=== PATIENT | male | born 1980 | race Caucasian/White ===

== ENCOUNTER 2019-01-04 14:12 | Day surgery (SDC) | payer OTHER ==
[2019-01-04] VITALS (14 sets, daily range): BP systolic 108–137; BP diastolic 72–87; PULSE 62–79; RESP 11–22; Ht 172.7 cm; Wt 58.3 kg
[~2019-01-04] VITALS: Ht 172.7 cm; Wt 58.3 kg
[2019-01-04] MEDS ORDERED: LACTATED RINGER'S 1,000 ML IV SCH (16:00)
[2019-01-04] MEDS ORDERED: CEFAZOLIN 2 GM/50 ML (PMX) 50 ML IVPB ONE (16:00)
--- NOTE | 2019-01-04 16:07 | PREAC ---
Date/Time of Note Date/Time of Note DATE: 01/04/19 TIME: 16:05 Anesthesia Eval and Record Evaluation Time Pre-Procedure Interview DATE: 01/04/19 TIME: 16:05 Age 38 Sex male NPO: 8 hrs Preoperative diagnosis Rt distal radius fracture Planned procedure Rt distal Radius ORIF Past Medical History Past Medical History: None Surgery & Anesthesia Issues No known issue Meds Anticoagulation: No Beta Renu within 24 hr: No Reason Beta Renu not given: Pt. not on B-Renu No Active Prescriptions or Reported Meds Current Medications Lactated Ringer's 1,000 ml @ 30 mls/hr Q24H IV Last administered on 01/04/19at 15:47; Admin Dose 30 MLS/HR; Start 01/04/19 at 16:00 Cefazolin Sodium/ Dextrose 50 ml @ 100 mls/hr ONCE ONCE IVPB ; Start 01/04/19 at 16:00; Stop 01/04/19 at 16:29 Meds reviewed: Yes Allergies Coded Allergies: codeine (Verified Allergy, Unknown, ITCHY RASH, 01/04/19) Allergies Reviewed: Yes Labs/Studies Labs Reviewed: Reviewed by anesthesiologist test: N/A Studies: ECG Pre-procedure Exam Last vitals Vital Signs Date Temp Pulse Resp B/P (MAP) Pulse Ox O2 O2 Flow FiO2 Time Delivery Rate 01/04/19 98.8 79 16 108/72 99 15:52 (84) Airway: Adequate mouth opening, Adequate thyromental dist Mallampati: Mallampati II Teeth: Normal Lung: Normal Heart: Normal ASA Physical Status ASA physical status: 1 Emergency: None Planned Anesthetic General/MAC: LMA Planned Pain Management Single shot nerve block, Parenteral pain med, Local by surgeon Pre-operative Attestations Prior to commencing anesthesia and surgery, the patient was re-evaluated, there was verification of: *The patient's identity *The results of appropriate recent lab work and preoperative vital signs *The above evaluation not changing prior to induction *Anesthetic plan, risk benefits, alternative and complications discussed with patient/family; questions answered; patient/family understands, accepts and wishes to proceed. JOSÉ LUIS QUESADA MD Jan 04, 2019 16:07
[2019-01-04] MEDS ORDERED: POLYMYXIN/BACITRACIN 1L IRRIG ONE (16:19)
--- NOTE | 2019-01-04 17:04 | HPN ---
Date/Time of Note Date/Time of Note DATE: 01/04/19 TIME: 17:04 Interval H&P Admission Note Pt. seen H&P reviewed: No system changes MAVIS VERGARA Jan 04, 2019 17:04
[2019-01-04] MEDS ORDERED: MIDAZOLAM 1 MG/ML 2 ML INJ ONE (17:08)
[2019-01-04] MEDS ORDERED: LIDOCAINE 2% (SDV) 5 ML INJ ONE (18:24)
[2019-01-04] MEDS ORDERED: ROPIVACAINE 0.5 % 30 ML VIAL ONE (18:24)
[2019-01-04] MEDS ORDERED: PROPOFOL 20 ML ONE (18:24)
[2019-01-04] MEDS ORDERED: CEFAZOLIN 1 GM INJ ONE (18:24)
[2019-01-04] MEDS ORDERED: ONDANSETRON 4 MG INJ ONE ×2 (18:25→19:08)
--- NOTE | 2019-01-04 18:56 | PAC ---
Date/Time of Note Date/Time of Note DATE: 01/04/19 TIME: 18:55 Post-Anesthesia Notes Post-Anesthesia Note Last documented vital signs Vital Signs Date Temp Pulse Resp B/P (MAP) Pulse Ox O2 O2 Flow FiO2 Time Delivery Rate 01/04/19 98.8 79 16 108/72 99 15:52 (84) Activity: WNL Respiratory function: WNL Cardiovascular function: WNL Mental status: Baseline Pain reasonably controlled: Yes Hydration appropriate: Yes Nausea/Vomiting absent: Yes Comments BP:112/56, P;78, Spo2:100%, T:98,8 JOSÉ LUIS QUESADA MD Jan 04, 2019 18:56
[2019-01-04] MEDS ORDERED: ONDANSETRON 4 MG INJ IV PRN (19:00)
[2019-01-04] MEDS ORDERED: MEPERIDINE 25 MG INJ IV PRN (19:00)
[2019-01-04] MEDS ORDERED: DIPHENHYDRAMINE 50 MG INJ IV PRN (19:00)
[2019-01-04] MEDS ORDERED: METOCLOPRAMIDE 10 MG INJ IV PRN (19:00)
[2019-01-04] MEDS ORDERED: HYDROmorphONE 1 MG/5 ML IV SYRINGE IV PRN ×2 (19:00)
[2019-01-04] MEDS ORDERED: FENTAnyl 50 MCG/ML VIAL IV PRN (19:00)
[2019-01-04] MEDS ORDERED: MEPERIDINE 25 MG INJ ONE (19:08)
--- NOTE | 2019-01-04 21:05 | OPPN ---
Date/Time of Note Date/Time of Note DATE: 01/04/19 TIME: 21:02 Operative Report Preoperative Diagnosis Right distal radius fracture, intra-articular, greater than 3 fragments Right carpal tunnel syndrome Postoperative Diagnosis Right distal radius fracture, intra-articular, greater than 3 fragments Right carpal tunnel syndrome Operation/Procedure Performed ORIF Right distal radius fracture, intra-articular, greater than 3 fragments Right carpal tunnel release Lengthening of the right wrist brachioradialis tendon Surgeon see signature line buyer assistant none Anesthesia: general Estimated blood loss: 0 - 10 ml's Transfusion Required none Specimen none Grafts/Implants none Complications none MAVIS VERGARA Jan 04, 2019 21:05
--- NOTE | 2019-01-05 03:35 | OPR ---
DATE OF OPERATION: 01/04/2019 SURGEON: Mavis Rosario MD ANESTHESIA: General. PREOPERATIVE DIAGNOSES: 1. Right distal radius fracture, intraarticular, greater than 3 fragments. 2. Right carpal tunnel syndrome. POSTOPERATIVE DIAGNOSES: 1. Right distal radius fracture, intraarticular, greater than 3 fragments. 2. Right carpal tunnel syndrome. PROCEDURES: 1. Open reduction and internal fixation of right distal radius fracture, intraarticular, greater than 3 fragments. 2. Right carpal tunnel release, open. 3. Lengthening of the right wrist brachioradialis tendon at the right wrist radial styloid. OPERATIVE FINDINGS: Comminuted right distal radius fracture with intraarticular extension and comminution with swelling at the carpal canal and displacement of the distal fragment radially due to the brachioradialis tendon. INDICATION FOR PROCEDURE: A 38-year-old male with injury to the right wrist, who was seen in the clinic and diagnosed with a displaced distal radius fracture. The options were discussed. The patient elected to proceed with surgical intervention, understanding the risks and benefits. DESCRIPTION OF PROCEDURE: The patient was seen in the preoperative area and all further questions were answered. Again, he gave informed consent understanding the risks and benefits. He was taken to the operative suite and placed in the supine position. He was placed under general anesthesia and tourniquet placed on the right upper extremity. Ancef 2 grams IV given and the right upper extremity was prepped with ChloraPrep stick and draped in the usual sterile fashion. Esmarch bandage was used to exsanguinate the extremity and tourniquet inflated to 250 mmHg. Attention was first turned to the distal radius and in a modified volar Huang approach, the distal radius was utilized with sharp dissection carried down through skin and subcutaneous tissue. The FCR sheath was incised and the FCR tendon retracted ulnarly. The FCR subsheath was incised and the FPL tendon retracted ulnarly. The pronator quadratus was elevated off its radial and distal borders and the fracture site was identified. The fracture was unable to be reduced due to the pull of the brachioradialis tendon. There was displacement of the distal fragment. A lengthening of the brachioradialis tendon was performed using Bovie electrocautery and a 15 blade knife to elevate the brachioradialis off of the radial styloid. The fracture was reduced into a more anatomic position and a [employer] volar distal radius plate was placed across the fracture site. Cortical screws were placed in the oblong hole and locking screws were placed distally. X-ray imaging showed appropriate hardware placement and bony alignment. Additional cortical and locking screws were placed proximally and distally. Final x-ray imaging showed appropriate hardware placement and bony alignment. The wound was copiously irrigated. Skin closed with 5-0 nylon. Attention was turned to the carpal tunnel and a 2 cm incision at the base of the palm was utilized with sharp dissection carried down through skin and subcutaneous tissue. The palmar aponeurosis was incised along its ulnar border and retractors were deepened. The transverse carpal ligament was divided along the ulnar border approximately 3 mm radial to the hook of the hamate. Retractors were placed proximally and distally, and the proximal and distal extensor transverse carpal ligaments were divided under direct visualization. Wound was copiously irrigated. Skin closed with 5-0 nylon. Xeroform was placed over the wounds, followed by sterile gauze, Webril, and a short arm splint. Tourniquet deflated after 57 minutes. The patient was awakened from anesthesia. He was taken the postoperative suite in stable condition. He tolerated the procedure well without complication. SPECIMENS: None. ESTIMATED BLOOD LOSS: 5 mL. COUNTS: Sponge, instrument, and needle counts correct. TOURNIQUET TIME: 57 minutes. CONDITION ON DISCHARGE: Stable. The patient was given a nonrefillable 5-day prescription for pain medication for the surgery today. Dictated By: MAVIS CENTENO/KAYCEE Conf#: [id number] DID#: [id number] NING
== END 2019-01-04 20:45 | disposition home or self-care (01) ==
LOC: SDS 14:12
PROVIDERS: ATTEND Orthopaedic Surgery Hand Surgery
DX: G56.01 Carpal tunnel syndrome, right upper limb (principal); S52.571G Other intraarticular fracture of lower end of right radius, subsequent encounter for closed fracture with delayed healing; X58.XXXD Exposure to other specified factors, subsequent encounter
CPT/HCPCS: 64721; 71045; 73090; C1713; J0690; J1170; J2175; J2250; J2405; J2795; J3010; Z7512; Z7610